=== PATIENT | female | born 2000 | race Caucasian/White ===

== ENCOUNTER 2018-08-06 13:39 | Observation (INO) | payer MEDICAID ==
[~2018-08-06] VITALS: Ht 157.5 cm; Wt 81.6 kg
[~2018-08-06 13:39] MED LIST: PNV1TABL76 MT
== END 2018-08-06 16:00 | disposition home or self-care (01) ==
LOC: L&D 13:39
PROVIDERS: ADMIT Obstetrics & Gynecology; ATTEND Obstetrics & Gynecology
DX: O40.3XX0 Polyhydramnios, third trimester, not applicable or unspecified (principal); O36.5930 Maternal care for other known or suspected poor fetal growth, third trimester, not applicable or unspecified; Z3A.37 37 weeks gestation of pregnancy
CPT/HCPCS: 59025; 76815; 76818; G0378

== ENCOUNTER 2018-08-08 11:49 | Observation (INO) | payer MEDICAID ==
[~2018-08-08] VITALS: Ht 160 cm; Wt 70.8 kg
== END 2018-08-08 14:50 | disposition home or self-care (01) ==
LOC: L&D 11:49
PROVIDERS: ADMIT Obstetrics & Gynecology; ATTEND Obstetrics & Gynecology
DX: O36.5930 Maternal care for other known or suspected poor fetal growth, third trimester, not applicable or unspecified (principal); Z3A.37 37 weeks gestation of pregnancy
CPT/HCPCS: 59025; 76815; 76818; G0378

== ENCOUNTER 2018-08-16 11:11 | Observation (INO) | payer MEDICAID ==
[~2018-08-16] VITALS: Ht 167.6 cm; Wt 82.1 kg
== END 2018-08-16 12:16 | disposition home or self-care (01) ==
LOC: L&D 11:11
PROVIDERS: ADMIT Obstetrics & Gynecology; ATTEND Obstetrics & Gynecology
DX: O36.5930 Maternal care for other known or suspected poor fetal growth, third trimester, not applicable or unspecified (principal); Z3A.39 39 weeks gestation of pregnancy
CPT/HCPCS: 59025; 76815; 76818; G0378